=== PATIENT | male | born 1955 | race Caucasian/White ===

== ENCOUNTER 2025-01-06 03:41 | Emergency (ER) | payer MEDICARE, MEDICAID, SELFPAY ==
[2025-01-06 03:51] VITALS: BP 149/80; PULSE 105; RESP 18; TEMP 36.8; O2SAT 96
[2025-01-06 03:52] VITALS: PULSE 100; RESP 20
--- NOTE | 2025-01-06 04:15 | PD.EDABDPN ---
ED Abdominal Pain RME/HPI General Chief Complaint: Abdominal Pain Stated complaint: CONSTIPATION Time seen by provider: 01/06/25 04:10 Arrival date/time: 01/06/25 03:41 69M with history of HTN and psych presents to ED with 2 days of constipation and rectal pain from his hemorrhoids. Patient denies ab pain, N/V, and ab surgeries. Patient has tried some senna and Miralax w/ minimal relief. Limitations: no limitations Related Data Previous Rx's ?Medication ?Instructions ?Recorded hydrocortisone 2.5 % topical cream 1 applic RI QDAY PRN hemorrhoids 01/06/25 with perineal applicator #30 grams (Anusol-HC) lactulose 10 gram/15 mL oral 10 g (15 mL) PO BID PRN 01/06/25 solution constipation #473 mL lidocaine 5 % topical ointment 1 applic topical BID PRN pain #30 01/06/25 grams Allergies Allergy/AdvReac Type Severity Reaction Status Date / Time Penicillins Allergy Verified 01/06/25 03:49 Review of Systems Review of Systems Systems Reviewed: All systems reviewed, normal except as documented Gastrointestinal Gastrointestinal: Reports as per HPI, Reports constipation and Reports other (rectal pain) Past Medical History Social History SMOKING STATUS: Never smoker ED Exam General Limitations: Present no limitations General appearance: Present alert and in no apparent distress Head Head exam: Present atraumatic Neck Neck exam: Present normal inspection, full ROM and trachea midline Chest Chest inspection: Present normal inspection and symmetric chest wall rise Neurological Exam Neurological exam: Present alert and oriented X3 Psychiatric Psychiatric exam: Present normal affect and normal mood Skin Skin exam: Present warm, dry, intact and normal color Course Quality Measures none Orders Category Date Time Status Enema Administration NOW Care 01/06/25 04:11 Active Lactulose Syrup [Enulose Syrup] Med 01/06/25 04:11 Discontinued 20 gm PO X1 ONE Vital Signs Vital signs: Vital Signs Temperature 98.2 F 01/06/25 03:51 Pulse Rate 105 H 01/06/25 03:51 Respiratory Rate 18 01/06/25 03:51 Blood Pressure 149/80 H 01/06/25 03:51 Pulse Oximetry (%) 96 01/06/25 03:51 Oxygen Delivery Method Room Air 01/06/25 03:51 O2 at 96% on RA and WNLs Abdominal Pain MDM MDM Narrative MDM Narrative:: 69M with history of HTN and psych presents to ED with 2 days of constipation and rectal pain from his hemorrhoids. Patient denies ab pain, N/V, and ab surgeries. Patient has tried some senna and Miralax w/ minimal relief. Physical exam reveals uncomfortable-appearing male. Patient is afebrile and alert. Meds and debt management counselor given. Patient would prefer enema. Patient data External records reviewed:: None Clinical information provided by:: patient Social determinants that could affect healthcare access:: mental health Patient has the following chronic illnesses:: HTN and psych How is presenting disease/condition affected by chronic disease/condition?: uneffected by Evaluation data The following diagnostics were reviewed and interpreted by me:: other (specify) (none) Lab and/or radiology exams considered but not ordered:: not ordered Interpretation Summary: n/a Medications / Prescriptions Medications or Prescriptions considered but not ordered:: ordered Medication administrations:: Medication Administration History Discontinued Medications Lactulose (Lactulose Syrup 20 Gm/30 Ml Udc) 20 gm PO X1 ONE; Protocol Stop: 01/06/25 04:12 Last Admin: 01/06/25 04:42 Dose: 20 gm Documented By: SAYRA above Consultations Consultation(s) initiated? (list below): No Diagnosis Differential diagnosis abdominal pain: abdominal pain, acute appendicitis, calculus of kidney, constipation, diverticulitis, endometriosis, gastroenteritis, pancreatitis, small bowel obstruction and other (hemorrhoids) Most likely diagnosis given after review of the tests above:: constipation and hemorrhoids Admission Indicated Admission indicated?: not indicated Admission Request Was there a request for admission?: No Disposition Plan Disposition Plan: Discharge Discharge Attestation Discharge Attestation: The patient and all family members were given an opportunity to ask questions and understood the discharge instructions. Discharge instructions specifically effects, indications for sooner follow up or return to the emergency department, and the expected course of current diagnosis. Patient condition: Stable Discharge Plan Plan Patient Disposition: HOME (Self Care) Discharge Disposition comment: Stable Prescriptions/Referrals Prescriptions/Med Rec: New lactulose 10 gram/15 mL solution 10 g PO BID PRN (Reason: constipation) Qty: 473 0RF lidocaine 5 % ointment 1 applic topical BID PRN (Reason: pain) Qty: 30 0RF Rx Instructions: Use 10-15 min prior to wanting to have BM hydrocortisone [Anusol-HC] 2.5 % cream with perineal applicator 1 applic RI QDAY PRN (Reason: hemorrhoids) Qty: 30 0RF Problem List Clinical Impression: Constipation, Hemorrhoids Patient/Caregiver Discharge Instructions Education Materials: ED Constipation (Adult), ED Hemorrhoids Additional Instructions: Please follow-up with PCP within 24-48 hours and return immediately if symptoms worsen. Print Language: Mohawk Stand Alone Forms: Patient Portal Info Letter PA/PITTING MACHINE OPERATOR Supervising Physician PA/PITTING MACHINE OPERATOR Supervising Physician: Dr. Ireland
[2025-01-06] MEDS: LACTULOSE SYRUP 20 GM/30 ML UDC PO (04:42)
--- NOTE | 2025-01-06 07:01 | PC.NURSE ---
PT DID HAVE SM AMOUNT OF LOOSE STOOL. PT FEELS BETTER. PT BROTHER CAME TO TAKE HIM HOME.
== END 2025-01-06 07:04 | disposition home or self-care (01) ==
LOC: SERX 06:48
PROVIDERS: Emergency Provider Emergency Medicine; PCP Student in an Organized Health Care Education/Training Program
DX: K59.00 Constipation, unspecified (principal); I10 Essential (primary) hypertension; K64.9 Unspecified hemorrhoids
CPT/HCPCS: 99283; A9270